=== PATIENT | male | born 1990 | race Hispanic/Latino ===

== ENCOUNTER 2022-04-28 15:08 | Emergency (ER) | payer SELFPAY ==
[2022-04-28] MEDS ORDERED: SODIUM CHLORIDE 0.9% 1000 ML 1,000 ML IV ONE (17:38)
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
[2022-04-28 17:55] VITALS: BP 118/79
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
[2022-04-28 18:28] LABS: BUN/Creatinine Ratio 18; Blood Urea Nitrogen 14 mg/dL (9-20); Calcium 9.7 mg/dL (8.4-10.2); Hemolysis Index 12
[2022-04-28 18:48] LABS: Basophils # (Auto) 0.1 K/mm3 (0.0-0.1); Basophils % (Auto) 0.3 % (0.0-1.8); Eosinophils % (Auto) 0.2 % (0.0-4.3); Hematocrit 43.6 % (35.5-45.6); Hemoglobin 14.6 gm/dl (11.8-15.2); Lymphocytes # (Auto) 1.2 K/mm3 (1.2-5.4); Lymphocytes % (Auto) 6.5 % (13.4-35.0); Mean Corpuscular HGB Conc 34 % (32-34); Mean Corpuscular Volume 95 fl (84-94); Monocytes # (Auto) 1.2 K/mm3 (0.0-0.8); Monocytes % (Auto) 6.7 % (0.0-7.3); Platelet Count 266 K/mm3 (140-440); Red Blood Count 4.57 M/mm3 (3.65-5.03); Red Cell Distribution Width 13.8 % (13.2-15.2)
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
[2022-04-28] MEDS ORDERED: LIDOCAINE (1%) 10 MG/1 ML VIAL 20 ML MDV INFILTRATI ONE (19:20)
[2022-04-28] MEDS ORDERED: SODIUM CHLORIDE IRRI 500 ML 500 ML IR ONE (19:58)
[2022-04-28] MEDS ORDERED: LIDOCAINE 2%/EPINEPHRINE 1:100,000 VIAL (20 ML) INFILTRATI ONE (20:21)
[2022-04-28] MEDS ORDERED: LIDOCAINE 1%/EPINEPHRINE 1:100,000 VIAL (20 ML) INFILTRATI SCH (20:30)
[2022-04-28] MEDS ORDERED: KETOROLAC 30 MG/1 ML INJ IM ONE (21:08)
[2022-04-28] MEDS ORDERED: ACETAMINOPHEN 500 MG TAB PO ONE (21:11)
== END 2022-04-28 21:51 | disposition home or self-care (01) ==
LOC: ED 15:08
DX: S81.012A Laceration without foreign body, left knee, initial encounter (principal); S20.311A Abrasion of right front wall of thorax, initial encounter; R51.9 Headache, unspecified; M54.2 Cervicalgia; V87.7XXA Person injured in collision between other specified motor vehicles (traffic), initial encounter; Y93.89 Activity, other specified; Y92.488 Other paved roadways as the place of occurrence of the external cause; Y99.8 Other external cause status; Z79.899 Other long term (current) drug therapy; R10.9 Unspecified abdominal pain
CPT/HCPCS: 36415; 70450; 71260; 72125; 73562; 74177; 80048; 85025; 96360; 96372; 99285; J1885; J3490; J7030; Q9967